=== PATIENT | male | born 1950 | race Caucasian/White ===

== ENCOUNTER → 2016-06-15 | Day surgery (SDC) | payer OTHER ==
[2016-06-02 14:11] LABS: % IMMATURE GRANULYOCYTES 0.9 % (0.0-1.1); ABSOLUTE IMMATURE GRANULOCYTES 0.05 10^3/uL (0.00-0.10); ADD DIFF? NO; ADD MORPH? NO; ADD SCAN? NO; ATYPICAL LYMPHOCYTE FLAG 10 (0-99); FRAGMENT RBC FLAG 0 (0-99); HEMATOCRIT 44.4 % (40.0-51.0); HEMOGLOBIN 15.3 g/dL (13.7-17.5); LEFT SHIFT FLG 0 (0-99); LIPEMIA HEMOLYSIS FLAG 90 (0-99); MEAN CELL HEMOGLOBIN 30.5 pg (27.9-34.1); MEAN CELL HEMOGLOBIN CONCENTR. 34.5 g/dL (32.4-36.7); MEAN CELL VOLUME 88.4 fL (81.5-99.8); MEAN PLATELET VOLUME 9.8 fL (8.7-11.7); PLATELET CLUMPS FLAG 0 (0-99); PLATELET COUNT 187 10^3/uL (150-400); RED BLOOD CELL COUNT 5.02 10^6/uL (4.40-6.38); RED CELL DISTRIBUTION WIDTH 12.5 % (11.5-15.2)
[~2016-06-15] MED LIST: ACETAMINOPHEN 325 MG TAB PO ONE; CEFAZOLIN 2 GM/DEXTR 100 ML IV ONE; CHLORHEXIDINE GLUC HIBICLENS 118 ML BTL TP ONE; DEXAMETHASONE 4 MG/ML VIAL IVP ONE; FAMOTIDINE 20 MG TAB PO ONE; ROPI/epiNEPH/KETOROLAC JOINT COCKTAIL IU ONE; SKIN ADHESIVE (DERMABOND) 1 EACH TP ONE; TRANEXAMIC ACID 3,000 MG in NS 50 ML IRR ONE; TRANEXAMIC ACID 3,000 MG/50 ML BAG IRR ONE; VANCOMYCIN 1 GM VIAL IV ONE
== END | disposition home or self-care (01) ==
LOC: F3N 06:57 → UNDOADMIN 06:57 → FSGY 07:42 → EDSTATUS 08:15
PROVIDERS: ATTEND Orthopaedic Surgery
DX: Z53.20 Procedure and treatment not carried out because of patient's decision for unspecified reasons (principal)
CPT/HCPCS: J0171; J1885; J2795; J3370

== ENCOUNTER 2016-06-28 05:54 | Inpatient (IN) | payer OTHER ==
[2016-06-28] MEDS ORDERED: DEXAMETHASONE 4 MG/ML VIAL ONE (06:26)
[2016-06-28] MEDS ORDERED: CEFAZOLIN 2 GM/DEXTROSE/100 ML BAG IV ONE (06:27)
[2016-06-28] MEDS ORDERED: FAMOTIDINE 20 MG TAB ONE (06:27)
[2016-06-28] MEDS ORDERED: ACETAMINOPHEN 325 MG TAB ONE (06:27)
[2016-06-28] MEDS ORDERED: LR 1,000 ML IV ONE (06:54)
[2016-06-28] MEDS ORDERED: LIDOCAINE 1% 5 ML SDV ID PRN (06:54)
[2016-06-28] MEDS ORDERED: VANCOMYCIN 1 GM VIAL IV ONE ×2 (07:38→07:46)
[2016-06-28] MEDS ORDERED: TRANEXAMIC ACID 3,000 MG/50 ML BAG IRR ONE (07:38)
[2016-06-28] MEDS ORDERED: SKIN ADHESIVE (DERMABOND) 1 EACH TP ONE ×2 (07:38→07:40)
[2016-06-28] MEDS ORDERED: MIDAZOLAM 2 MG/2 ML VIAL ONE (08:01)
[2016-06-28] MEDS ORDERED: fentaNYL 100 MCG/2 ML INJ ONE (08:05)
[2016-06-28] MEDS ORDERED: PROPOFOL/EMULSION 500 MG/50 ML BOTTLE IV ONE (08:05)
[2016-06-28] MEDS ORDERED: ONDANSETRON 4 MG/2 ML VIAL IVP PRN (08:16)
[2016-06-28] MEDS ORDERED: diphenhydrAMINE 25 MG CAP PO PRN (08:16)
[2016-06-28] MEDS ORDERED: LACTULOSE 20 GM/30 ML UDCUP PO PRN (08:16)
[2016-06-28] MEDS ORDERED: PHARMACY PAIN CONSULT 1 EA MISC PRN (08:16)
[2016-06-28] MEDS ORDERED: PROMETHAZINE HCL 25 MG SUPPR PR PRN (08:16)
[2016-06-28] MEDS ORDERED: MAGNESIUM HYDROXIDE 30 ML UDCUP PO PRN (08:16)
[2016-06-28] MEDS ORDERED: TEMAZEPAM 15 MG CAP PO PRN (08:16)
[2016-06-28] MEDS ORDERED: BISACODYL 10 MG SUPP PR PRN (08:16)
[2016-06-28] MEDS ORDERED: ONDANSETRON DISINTEGRATING 4 MG TAB PO PRN (08:16)
[2016-06-28] MEDS ORDERED: POLYETHYLENE GLYCOL 3350 17 GM PKT PO PRN (08:16)
[2016-06-28] MEDS ORDERED: PROMETHAZINE HCL 25 MG/ML VIAL IVP PRN (08:16)
[2016-06-28] MEDS ORDERED: METOCLOPRAMIDE 10 MG/2 ML VIAL IVP PRN (08:16)
[2016-06-28] MEDS ORDERED: DIPHENOXYLATE/ATROPINE LOMOTIL 1 TAB PO PRN (08:16)
[2016-06-28] MEDS ORDERED: LR 1,000 ML IV SCH (08:30)
--- NOTE | 2016-06-28 09:30 | POSTOPPROG ---
Post Op Note Date of Operation: 06/28/16 Surgeon: Nico Garcia Strategic Planning Director: Reina Garcia PAc Anesthesiologist: Ayala Anesthesia: Spinal Pre-op Diagnosis: L knee DJD Post-op Diagnosis: same Indication: pain Procedure: L TKA with robotic assist Findings: DJD knee Inf/Abcess present in the surg proc area at time of surgery?: No EBL: 50-100
--- NOTE | 2016-06-28 10:59 | DX ---
Portable Left Knee, AP and Lateral Views, 10:17 AM Clinical History: 65 year-old male in the PACU after a left total knee arthroplasty. Comparison Studies: CT scan of the left knee, dated 06/02/2016, and left knee radiography, dated 12/08. Findings: In the interim, the patient has undergone a tricomponent knee arthroplasty with anatomic al ignment of the distal femoral, proximal tibial, and the posterior patellar components. There is aurelio lly-expected air within the soft tissues There is a pneumatic cuff over the calf. There are ghosting artifacts from previously placed and subsequently removed hardware in the femoral and tibial diaphyse s. Impression: Status post left knee arthroplasty, with anatomic alignment.
[2016-06-28] MEDS ORDERED: CEFAZOLIN 2 GM/DEXTR 100 ML IV ONE (11:30)
[2016-06-28] MEDS ORDERED: FAMOTIDINE 20 MG TAB PO ONE (11:30)
[2016-06-28] MEDS ORDERED: ACETAMINOPHEN 325 MG TAB PO ONE (11:30)
[2016-06-28] MEDS ORDERED: DEXAMETHASONE 4 MG/ML VIAL IVP ONE (11:30)
[2016-06-28] MEDS ORDERED: TRANEXAMIC ACID 3,000 MG in NS 50 ML IRR ONE (11:30)
[2016-06-28] MEDS ORDERED: CHLORHEXIDINE GLUC HIBICLENS 118 ML BTL TP ONE (11:30)
[2016-06-28] MEDS ORDERED: ROPI/epiNEPH/KETOROLAC JOINT COCKTAIL IU ONE (11:30)
[2016-06-28] MEDS: SENNOSIDES/DOCUSATE SODIUM TAB PO SCH ×2 (12:15→20:41)
--- NOTE | 2016-06-28 12:17 | GOP ---
[f rep st] OPERATIVE REPORT DATE OF OPERATION: 06/28/2016 SURGEON: Monica Garcia MD WINDOW GLAZIER HELPER: MELISSA Chappell ANESTHESIA: Spinal. PREOPERATIVE DIAGNOSIS: Left knee osteoarthritis. POSTOPERATIVE DIAGNOSIS: Left knee osteoarthritis. PROCEDURE PERFORMED: Left total knee replacement with computer navigation and robotic assist. FINDINGS/PATHOLOGY: Severe lateral and patellofemoral osteoarthritis. ESTIMATED BLOOD LOSS: 30 cc. INDICATIONS: This is a 65-year-old male with severe and progressive pain and deformity of the left knee unresponsive to conservative care. The risks and benefits of surgical intervention were explained in detail. DESCRIPTION OF PROCEDURE: The patient was brought to the operative room and placed on the table in the supine position. Spinal anesthesia was induced without difficulty. A pneumatic tourniquet was applied about the left proximal thigh, and the leg was prepped and draped in a sterile fashion. The leg ibanez was applied. After exsanguination by elevation the tourniquet was inflated to 275 mm of mercury. Incision was made anterior medial from the tibial tuberosity to a point 2 cm proximal to the superior pole of the patella. Medial parapatellar arthrotomy was carried out from the superior pole of the patella and posteriorly in line with the fibers of the Type II VMO. The medial collateral ligament was elevated and the infrapatellar fat pad was resected. The patella was everted and the articular surface was excised. A 35 mm patellar button was placed. Attention was turned first to the distal aspect of the left femur. At 3 cm proximal to the medial rise of the femur, 2 percutaneous half pins were placed for fixation of the femoral array. In a similar fashion, 2 pins were placed anteromedial on the tibia for fixation of the tibial array. External land marking and registration of the hip center was performed without difficulty. Internal femoral and tibial registration was carried out without difficulty and the femoral and tibial checkpoints were placed and verified for accuracy. Attention was turned to the femur. The foot print for the size 5 femoral component was cut with the saw using the [employer] robotic system and verified for accuracy against the CT based plan. In a similar fashion, saw was used to cut the footprint for the size 5 tibial component using the [employer] system and verified for accuracy against the CT based plan. The tibial articular surface was excised without difficulty, followed by the intercondylar box cut. The knee was extended and the remnants of the medial and lateral meniscus were excised. The posterior capsule was injected with ropivacaine, epinephrine and Toradol. A size 5 MIS mini-keel tibial tray was positioned. Trial reduction was then carried out. There was excellent range of motion, alignment, and stability using the 9 mm polyethylene. All trials were then removed. The joint was thoroughly irrigated and carefully dried. Two packages of cement and 2 grams of vancomycin were mixed in the vacuum mixer and placed on the fixation surfaces of all surfaces of the components. The components were implanted and all excess cement was thoroughly removed. The permanent 9 mm polyethylene was placed without difficulty. The tourniquet was deflated and all bleeders were coagulated. The wound was thoroughly irrigated and closed using interrupted sutures of 2-0 Vicryl for the joint capsule. The subcu was closed with 3-0 Vicryl and the skin with 4-0 Monocryl. Dermabond and Steri-Strips were applied followed by a compressive dressing. The patient was then moved from the operating room to the recovery room in good condition, having tolerated the procedure well. /[id number]/MODL MTDD
[2016-06-28] MEDS: ACETAMINOPHEN 325 MG TAB PO SCH ×3 (12:30→23:54)
[2016-06-28] MEDS: oxyCODONE IR 5 MG TAB PO PRN ×4 (13:13→23:54)
[2016-06-28] MEDS: ceFAZolin 2 GM/DEXTROSE 100 ML IV SCH ×2 (14:31→20:42)
[2016-06-28 19:47] VITALS: RESP 18
[2016-06-28] MEDS: ASPIRIN 325 MG TAB PO SCH (20:41)
[2016-06-28] MEDS: FAMOTIDINE 20 MG TAB PO SCH (20:41)
[2016-06-28] MEDS: CYCLOBENZAPRINE 10 MG TAB PO PRN (20:42)
[2016-06-28] MEDS ORDERED: TAMSULOSIN HCL 0.4 MG CAP PO SCH (21:00)
[2016-06-28] MEDS ORDERED: FINASTERIDE 5 MG TAB PO SCH (21:00)
[2016-06-29] MEDS: oxyCODONE IR 5 MG TAB PO PRN ×3 (01:45→08:16)
[2016-06-29] MEDS: CYCLOBENZAPRINE 10 MG TAB PO PRN (04:48)
[2016-06-29] MEDS: ACETAMINOPHEN 325 MG TAB PO SCH (04:48)
[2016-06-29 04:49] VITALS: O2SAT 94
[2016-06-29] MEDS ORDERED: PANTOPRAZOLE SODIUM 40 MG TAB PO ONE (04:52)
[2016-06-29 05:11] LABS: HEMATOCRIT 37.6 % (40.0-51.0); HEMOGLOBIN 12.7 g/dL (13.7-17.5)
--- NOTE | 2016-06-29 07:13 | SOAPPROG ---
SOAP Progress Note Assessment/Plan: Assessment: Telly is doing well POD 1 s/p L TKA pain is well controlled on oral pain meds Anemia: level expected initially postop, asymptomatic VTE ppx: recommend aspirin daily. JACQUELINE godinez postop urinary retention: resolved. D/c planning: d/c to home today once he has worked with PT and OT. Plan: 06/29/16 07:12 Subjective: Telly is doing well today, denies SOB, chest pain and N/V. urinated last night. would like to be d/c'd to home Objective: Vital Signs Temp Pulse Resp BP Pulse Ox 36.4 C 59 L 18 139/86 H 94 06/29/16 04:49 06/29/16 04:49 06/29/16 04:49 06/29/16 04:49 06/29/16 04:49 Laboratory Results 06/29/16 04:43 06/28/16 06/29/16 06/30/16 05:59 05:59 05:59 Intake Total 3480 Output Total 2330 Balance 1150 LLE: incision dressing is clean and dry, NVI, +pf/df ICD10 Worksheet Patient Problems: Problems Problem Status Diagnosed Primary localized osteoarthritis of left knee Acute
[2016-06-29 07:39] VITALS: BP 134/83; PULSE 57; TEMP 98.4
[2016-06-29] MEDS: ASPIRIN 325 MG TAB PO SCH (08:16)
[2016-06-29] MEDS: SENNOSIDES/DOCUSATE SODIUM TAB PO SCH (08:17)
[2016-06-29] MEDS: FAMOTIDINE 20 MG TAB PO SCH (08:19)
[2016-06-29] MEDS ORDERED: TAMSULOSIN HCL 0.4 MG CAP PO SCH (09:00)
[2016-06-29] MEDS ORDERED: FINASTERIDE 5 MG TAB PO SCH (09:00)
[2016-06-29] MEDS ORDERED: PANTOPRAZOLE SODIUM 40 MG TAB PO SCH (09:00)
[2016-06-29] MEDS ORDERED: NON-FORMULARY NEW DRUG (Omeprazole [Omeprazole] 40 MG) PO SCH (09:00)
== END 2016-06-29 10:33 | disposition home or self-care (01) | DRG 470 ==
LOC: FSGY 05:54 → F3N 08:16
PROVIDERS: ADMIT Orthopaedic Surgery; ATTEND Orthopaedic Surgery
PROC: 0SRD0J9 Replacement of Left Knee Joint with Synthetic Substitute, Cemented, Open Approach (ICD-10-PCS; principal; 2016-06-28 08:15)
PROC: 8E0Y0CZ Robotic Assisted Procedure of Lower Extremity, Open Approach (ICD-10-PCS; principal; 2016-06-28 08:15)
DX: M17.12 Unilateral primary osteoarthritis, left knee (principal); K21.9 Gastro-esophageal reflux disease without esophagitis; N40.0 Benign prostatic hyperplasia without lower urinary tract symptoms
CPT/HCPCS: 97116-GP; 97161-GP; 97165-GO; 97530-GP; C1713; G8978-GP-CJ; G8979-GP-CI; G8980-GP-CI; G8987-GO-CI; G8988-GO-CI; G8989-GO-CI; J0171; J0690; J1100; J1885; J2250; J2704; J2795; J3010; J3370